=== PATIENT | male | born 1970 | race Caucasian/White ===

== ENCOUNTER 2019-12-30 09:19 | Emergency (ER) | payer OTHER ==
[~2019-12-30] VITALS: Ht 172.7 cm; Wt 104.3 kg
[2019-12-30] MEDS ORDERED: NEXIUM20 M1 PO (09:27)
[2019-12-30] MEDS ORDERED: VOLTAREN100 GM TOP (09:27)
[2019-12-30] MEDS ORDERED: DIOVAN HCT 3201 EAC1 PO (09:27)
[2019-12-30] MEDS ORDERED: LEVAQUIN750 MG PO (11:28)
== END 2019-12-30 12:49 | disposition home or self-care (01) ==
LOC: ER 09:19
DX: S01.81XA Laceration without foreign body of other part of head, initial encounter (principal); W18.09XA Striking against other object with subsequent fall, initial encounter; Y93.89 Activity, other specified; Y92.018 Other place in single-family (private) house as the place of occurrence of the external cause; Y99.8 Other external cause status

== ENCOUNTER 2020-04-17 13:49 | Inpatient (IN) | payer OTHER ==
[~2020-04-17] VITALS: Ht 172.7 cm; Wt 95.3 kg
[~2020-04-17 13:49] MED LIST: DIOVAN HCT 3201 EAC1 PO; LEVAQUIN750 MG PO; NEXIUM20 M1 PO; VOLTAREN100 GM TOP
--- NOTE | 2020-04-17 14:37 | NUR ---
PACIENTE ALERTA Y ORIENTADO ACOMPANADO POR FAMILIAR. REFIERE TENER DOLOR EN RODILLA RELACIONADO A CAIDA HACE LIDIA HORA. SE LE REALIZA DEXTRO Y EKG Y SE LE PRESENTA A LA DOCTORA. PACIENTE COMENZO A SENTIRSE MAREADO, SUDAR, Y TEMBLAR. SE UBICA PACIENTE EN AREA DE CUIDADO CRITICO, SE COLOCA EN CAMA CON BARANDAS ELEVADAS, MONITOR CARDIACO Y OXIMETRIA DE PULSO.
--- NOTE | 2020-04-17 15:17 | NUR ---
PATIENT IS RECEIVED ALERT AND ORIENTED X3 AND IS IN BED WITH RAILINGS UP. PATIENT IS TALKING, IS BREATHING WELL AND DENIES BEING IN PAIN. PATIENT HAS IVF 0.9% NACL AT FULL DRIP WITH PATENT IV LINES AND AREA OF VENOPUNCTION CLEAR OF BLEEDING AND SWELLING. PATIENT SAYS HE DOESN'T FEEL DIZZY AT ALL AND IS FEELING BETTER BY THE MOMENT. PATIENT WILL STAY IN OBSERVATION FOR ANY CHANGES IN HIS CONDITION.
--- NOTE | 2020-04-17 22:01 | NUR ---
PATIENT IS POSTED TO TELEMETRY AND MS. PACHECO RECIEVES POST.
[2020-04-20] MEDS ORDERED: GABAPENTIN600 MG PO (08:28)
[2020-04-20] MEDS ORDERED: DICLOFENAC SODI75 MG PO (08:28)
[2020-04-22] MEDS ORDERED: COZAAR25 MG PO (09:54)
== END 2020-04-22 11:08 | disposition home or self-care (01) | DRG 315 ==
LOC: ER 13:49 → MEDI 20:55 → SEC-K 04-18 17:08 → MEDI 04-19 23:52
PROVIDERS: ADMIT Internal Medicine; ATTEND Internal Medicine
PROC: BW28ZZZ Computerized Tomography (CT Scan) of Head (ICD-10-PCS; 2020-04-17)
PROC: BW38ZZZ Magnetic Resonance Imaging (MRI) of Head (ICD-10-PCS; 2020-04-17)
PROC: B24BZZZ Ultrasonography of Heart with Aorta (ICD-10-PCS; 2020-04-18)
PROC: B348ZZZ Ultrasonography of Bilateral Internal Carotid Arteries (ICD-10-PCS; 2020-04-18)
PROC: 4A12X4Z Monitoring of Cardiac Electrical Activity, External Approach (ICD-10-PCS; principal; 2020-04-20)
DX: I95.89 Other hypotension (principal); E87.1 Hypo-osmolality and hyponatremia; R55 Syncope and collapse; I10 Essential (primary) hypertension; E11.9 Type 2 diabetes mellitus without complications; E87.6 Hypokalemia; E86.0 Dehydration; E83.42 Hypomagnesemia
CPT/HCPCS: 70544

== ENCOUNTER 2020-06-17 12:38 | Inpatient (IN) | payer OTHER ==
[~2020-06-17] VITALS: Ht 172.7 cm; Wt 96.2 kg
[~2020-06-17 12:38] MED LIST changes: +COZAAR25 MG PO; +DICLOFENAC SODI75 MG PO; +GABAPENTIN600 MG PO
--- NOTE | 2020-06-17 13:03 | NUR ---
PTE. REFIERE DEBILIDAD, VOMITOS, MAREOS HACE TRS FOLEY SE BUD S/V YSE UBIAC EN AREA DE OBSERVACION
--- NOTE | 2020-06-17 13:34 | NUR ---
PACIENTE ALERTA Y ORIENTADO EN LEXIE JOLANTA ESFERAS MR. MENDOZAAN ORIENTA A PACIENTE SOBRE PROCEDIMEINTO Y TX, REFIERE ENTENDER. EXTRAE MUESTRAS DE LABORATORIO CONE MEDIDAS ASEPTICAS Y ADMINISTRA MEDICAMENTOS [facility]ICA.
--- NOTE | 2020-06-17 15:24 | NUR ---
PTE MASCULINO ALERTA Y ORIENTADO EN L[place] JOLANTA ESFERAS EN VADIM BAJA CON BARANDAS ELEVADAS Y FRENOS COLOCADOS POR SEGURIDAD. SE OSBERVA CON BUEN PATRON RESPIRATORIO Y NO REFIERE DOLOR. VENOPUNCION PATENTE DERRICK DE EDEMA Y ERITEMA RECIBIENDO TERAPIA DE IVFS 0.9NSS BAJANDO 175ML/HR. PENDIENTE RESULTADOS DE LABORATORIO Y U/A PTE CON ENVASE Y DEBIDAMENTE ORIENTADO.
--- NOTE | 2020-06-18 00:39 | NUR ---
SE RECIBE MASCULINO ALERTA Y ORIENTADO POR JOLANTA ESFERAS, EN VADIM CON BARANDAS SEGURAS Y ELEVADAS. AREA DE VENOPUNCION DERRICK DE EDEMA O ENROJECIMIENTO. SE MANTIENE EN ESPERA DE MEDICOS CONSULTADOS.
--- NOTE | 2020-06-18 07:08 | NUR ---
SE RCIBE PACIENTE UBICADO EN AREA DE OBSERVACION, ALERTA, CONCIENTE Y ORIENTADO X3. EN MISMO ESTA UBICADO EN VADIM CON BARANDAS ELEVADAS Y ESTA PENDIENTE DE SER CONSULTADO POR MEDICINA INTERNA. SE MANTIEN EN OBSERVACION POR CABIOS EN CONDICION Y CONTINUIDAD DE INNA.
--- NOTE | 2020-06-18 15:20 | NUR ---
SE RECIBE PTE ALERTA Y CONCIENTE POR 3 EN CAMA CON BARANDAS ELEVADA Y TIMBRE ACCESIBLE SE OBSERVA VENOPUNCION PATENTE Y DERRICK DE EDEMA, PTE EN ESPERA DEL DR GIULIA RM PTE SE MANTIENE EN OBSERVACION Y BAJO TRATAMIENTO,
[2020-06-26] MEDS ORDERED: KLOR-CON M2020 MEQ PO (12:52)
== END 2020-06-26 13:09 | disposition home or self-care (01) | DRG 439 ==
LOC: ER 12:38 → MEDJ 06-18 16:26
PROVIDERS: ADMIT Internal Medicine; ATTEND Internal Medicine
PROC: BF37YZZ Magnetic Resonance Imaging (MRI) of Pancreas using Other Contrast (ICD-10-PCS; principal; 2020-06-18)
DX: K85.10 Biliary acute pancreatitis without necrosis or infection (principal); E87.1 Hypo-osmolality and hyponatremia; Z20.828 Contact with and (suspected) exposure to other viral communicable diseases; E86.0 Dehydration; I10 Essential (primary) hypertension; Z53.09 Procedure and treatment not carried out because of other contraindication

== ENCOUNTER 2020-08-10 13:05 | Emergency (ER) | payer OTHER ==
[~2020-08-10] VITALS: Ht 172.7 cm; Wt 90.7 kg
[~2020-08-10 13:05] MED LIST changes: +KLOR-CON M2020 MEQ PO
== END 2020-08-11 14:23 | disposition home or self-care (01) ==
LOC: ER 13:05
DX: K80.80 Other cholelithiasis without obstruction (principal); K76.0 Fatty (change of) liver, not elsewhere classified; R10.11 Right upper quadrant pain; R10.84 Generalized abdominal pain; R11.2 Nausea with vomiting, unspecified; Z03.818 Encounter for observation for suspected exposure to other biological agents ruled out

== ENCOUNTER 2020-09-04 08:14 | Inpatient (IN) | payer OTHER ==
[~2020-09-04] VITALS: Ht 172.7 cm; Wt 88.0 kg
[2020-09-10] MEDS ORDERED: FOLIC ACID1 MG PO (17:11)
[2020-09-10] MEDS ORDERED: MULTIPLE VITAM1 EAC2 PO (17:11)
[2020-09-10] MEDS ORDERED: THIAMINE HCL100 MG PO (17:11)
== END 2020-09-10 18:23 | disposition home or self-care (01) | DRG 446 ==
LOC: ER 08:14 → SEC-K 17:36 → SURG 17:36 → MEDJ 09-08 15:41
PROVIDERS: ADMIT Internal Medicine; ATTEND Internal Medicine
PROC: BF37ZZZ Magnetic Resonance Imaging (MRI) of Pancreas (ICD-10-PCS; 2020-09-04)
PROC: 02HV33Z Insertion of Infusion Device into Superior Vena Cava, Percutaneous Approach (ICD-10-PCS; principal; 2020-09-05)
DX: K83.1 Obstruction of bile duct (principal); K70.10 Alcoholic hepatitis without ascites; I10 Essential (primary) hypertension; E87.6 Hypokalemia; Z72.89 Other problems related to lifestyle; Z20.822 Contact with and (suspected) exposure to COVID-19

== ENCOUNTER 2020-10-01 09:02 | Inpatient (IN) | payer OTHER ==
[~2020-10-01] VITALS: Ht 172.7 cm; Wt 87.5 kg
[~2020-10-01 09:02] MED LIST changes: +FOLIC ACID1 MG PO; +MULTIPLE VITAM1 EAC2 PO; +THIAMINE HCL100 MG PO
[2020-10-01] MEDS ORDERED: LEVOFLOXACIN5 ML PO (09:31)
[2020-10-01] MEDS ORDERED: HYDROXYZIN10 MG/5 ML PO (09:32)
[2020-10-13] MEDS ORDERED: MICRO-K 1010 MEQ PO (13:20)
[2020-10-13] MEDS ORDERED: SPIRONOLACTONE50 MG PO (13:20)
[2020-10-13] MEDS ORDERED: INTESTINEX680 M1 PO (13:20)
[2020-10-13] MEDS ORDERED: B-1100 MG PO (13:20)
[2020-10-13] MEDS ORDERED: ATARAX25 MG PO (13:20)
[2020-10-13] MEDS ORDERED: FOLIC ACID0.8 M1 PO (13:20)
[2020-10-13] MEDS ORDERED: MULTI VITAMIN1 EACH PO (13:20)
[2020-10-13] MEDS ORDERED: PRE PROTEIN1 EACH PO (13:20)
== END 2020-10-13 13:59 | disposition home or self-care (01) | DRG 433 ==
LOC: ER 09:02 → SEC-K 14:37 → MEDI 10-02 16:56
PROVIDERS: ADMIT Internal Medicine; ATTEND Internal Medicine
PROC: 02HV33Z Insertion of Infusion Device into Superior Vena Cava, Percutaneous Approach (ICD-10-PCS; principal; 2020-10-01)
PROC: 0W9G3ZX Drainage of Peritoneal Cavity, Percutaneous Approach, Diagnostic (ICD-10-PCS; 2020-10-07)
DX: K70.11 Alcoholic hepatitis with ascites (principal); K83.09 Other cholangitis; F10.288 Alcohol dependence with other alcohol-induced disorder; I10 Essential (primary) hypertension; Z20.822 Contact with and (suspected) exposure to COVID-19

== ENCOUNTER 2020-11-20 13:27 | Inpatient (IN) | payer OTHER ==
[~2020-11-20] VITALS: Ht 172.7 cm; Wt 70.3 kg
[~2020-11-20 13:27] MED LIST changes: +ATARAX25 MG PO; +B-1100 MG PO; +FOLIC ACID0.8 M1 PO; +HYDROXYZIN10 MG/5 ML PO; +INTESTINEX680 M1 PO; +LEVOFLOXACIN5 ML PO; +MICRO-K 1010 MEQ PO; +MULTI VITAMIN1 EACH PO; +PRE PROTEIN1 EACH PO; +SPIRONOLACTONE50 MG PO
--- NOTE | 2020-11-20 13:43 | NUR ---
PACIENTE ALERTA Y ORIENTADO. REFIERE MALESTAR GENERAL, FALTA DE AIRE, DEBILIDAD EN [place]. SE OBSERVA PIEL Y OJOS 'JAUNDICE' SINTOMAS PRESENTES AL MOMENTO DEL TRIAGE. SE KHADRA S/V. SE UBICA EN CADENCE DE OBSERVACION PARA EVALUACION MEDICA.
[2020-12-01] MEDS ORDERED: AMOX1TAB5 PO (15:01)
[2020-12-01] MEDS ORDERED: INTESTINEX680 M1 PO (15:01)
== END 2020-12-01 15:48 | disposition home or self-care (01) | DRG 372 ==
LOC: ER 13:27 → MEDJ 21:46
PROVIDERS: ADMIT Internal Medicine; ATTEND Internal Medicine
PROC: 4A033R1 Measurement of Arterial Saturation, Peripheral, Percutaneous Approach (ICD-10-PCS; 2020-11-20)
PROC: 0DJ08ZZ Inspection of Upper Intestinal Tract, Via Natural or Artificial Opening Endoscopic (ICD-10-PCS; principal; 2020-11-24)
DX: K65.2 Spontaneous bacterial peritonitis (principal); I85.00 Esophageal varices without bleeding; G93.49 Other encephalopathy; E87.1 Hypo-osmolality and hyponatremia; N39.0 Urinary tract infection, site not specified; K70.40 Alcoholic hepatic failure without coma; K70.9 Alcoholic liver disease, unspecified; E87.6 Hypokalemia; E80.6 Other disorders of bilirubin metabolism; B96.89 Other specified bacterial agents as the cause of diseases classified elsewhere; K70.11 Alcoholic hepatitis with ascites; I10 Essential (primary) hypertension; N20.0 Calculus of kidney; E86.0 Dehydration; G62.89 Other specified polyneuropathies

== ENCOUNTER 2025-07-21 10:00 | Inpatient (IN) | payer OTHER ==
[~2025-07-21] VITALS: Ht 172.7 cm; Wt 99.8 kg
[~2025-07-21 10:00] MED LIST changes: +AMOX1TAB5 PO
[2025-07-21] MEDS ORDERED: LASIX20 MG (11:12)
--- NOTE | 2025-07-21 11:20 | NUR ---
PACIENTE MASCULINO ALERTA Y ORIENTADO X 3. REFIERE MALESTAR GENERAL. SE MIDEN SIGNOS VITALES Y Y DXT. SE UBICA.
--- NOTE | 2025-07-21 12:44 | NUR ---
SE REALIZA LAB [facility] ORDEN MEDICA BAJO MEDIDAS ASEPTICAS. SE ORIENTA PTE QUIEN REFIERE ENTENDER Y ACEPTAR.
[2025-07-21 12:55] LABS: BASO % 0.4 % (0.1-1.2); EOS # 0.05 (0.04-0.54); EOS % 0.7 % (0.7-7.0); LYMPH # 1.14 (1.18-3.74); LYMPH % 17.0 % (19.3-53.1); MEAN PLATELET VOLUME 10.80 fl (9.4-12.4); MONO # 0.53 (0.24-0.82); MONO % 7.9 % (4.7-12.5); NEUT # 4.92 (1.56-6.13); NEUT % 73.7 % (34.0-71.1); RED CELL DISTRIBUTION WIDTH 13.2 % (11.6-14.4)
[2025-07-21 13:14] LABS: INR 1.35
[2025-07-21 13:35] LABS: ALT/SGPT 116.0 U/L (12-78); AST/SGOT 360.0 U/L (15-37); BILIRUBIN TOTAL 9.6 mg/dL (0.3-1.2); BILIRUBIN,CONJUGATED 6.36 mg/dL (0.0-0.2); BUN CREA RATIO 5.0 (7.0-25.0); CREATININE SERUM 0.77 mg/dL (0.70-1.30); GFR 105.68; GLOBULINA 4.9 G/DL (2.4-3.5); GLUCOSE FASTING 128.0 mg/dL (65-100); OSMOLALITY SERUM 285.0 MOSM/KG (275-295)
[2025-07-21] MEDS ORDERED: POTASSIUM CHLORIDE IN WATER 40 MEQ/100 ML PIGGYBAG IV ONE ×2 (15:45→16:10)
[2025-07-21 16:58] LABS: URINE APPEARANCE Clear; URINE BILIRRUBIN Large (NEGATIVE); URINE BLOOD Negative; URINE COLOR Dark Yellow; URINE GLUCOSE Negative (NEGATIVE); URINE KETONE 15 (NEGATIVE); URINE LEUKOCYTE Small; URINE NITRATE Negative; URINE PROTEIN 30 (NEGATIVE); URINE UROBILINOGEN 1.0 E.U./dl
[2025-07-21] MEDS ORDERED: 0.9 % SODIUM CHLORIDE 1,000 ML IV SCH (17:00)
[2025-07-21 17:02] LABS: URINE BACTERIA 36.5 uL (0.0-1933); URINE EPITHELIAL CELLS 20.6 uL (0.0-38.8); URINE RBC 8.2 uL (0.0-20.8); URINE WBC 30.8 uL (0.0-23.2)
[2025-07-21] MEDS ORDERED: LACTULOSE 20 G/30 ML BLIST.PACK PO SCH (17:02)
[2025-07-21] MEDS ORDERED: FAMOTIDINE/PF 20 MG in 0.9 % SODIUM CHLORIDE 8 ML IV PUSH SCH (17:02)
[2025-07-21] MEDS ORDERED: CHOLESTYRAMINE/ASPARTAME LIGHT 4 G/PKT PACKET PO SCH (17:03)
[2025-07-21] MEDS ORDERED: POTASSIUM CHLORIDE IN WATER 100 ML IV SCH (17:04)
[2025-07-21] MEDS ORDERED: ONDANSETRON HCL 4 MG in 0.9 % SODIUM CHLORIDE 50 ML IV PRN (17:15)
[2025-07-21 17:25] LABS: URINE CAST 0.70 uL (0.0-1.40)
[2025-07-21] MEDS ORDERED: FAMOTIDINE/PF 20 MG/2 ML VIAL ONE (17:47)
[2025-07-21] MEDS ORDERED: LACTULOSE 20 G/30 ML BLIST.PACK ONE (17:47)
[2025-07-22] MEDS ORDERED: ONDANSETRON HCL 2 MG/ML VIAL ONE (01:39)
[2025-07-22 03:05] VITALS: BP 119/78; O2SAT 98
[2025-07-22 08:39] VITALS: BP 137/88; O2SAT 97
[2025-07-22] MEDS ORDERED: SPIRONOLACTONE 25 MG TABLET PO SCH (09:00)
[2025-07-22 09:55] LABS: TSH 2.44 uIU/mL (0.358-3.74)
[2025-07-22] MEDS ORDERED: MAGNESIUM SULFATE IN WATER 4 GM/100 ML PIGGYBACK IV NR (13:00)
[2025-07-22 15:58] VITALS: BP 136/84; O2SAT 99
[2025-07-22] MEDS ORDERED: POTASSIUM PHOS,M-BASIC-D-BASIC 18 MM in 0.9 % SODIUM CHLORIDE 500 ML IV ONE (16:00)
[2025-07-22] MEDS ORDERED: Cyanocobalamin/Mecobalamin 1 TAB.SL SL SCH (17:00)
[2025-07-22] MEDS ORDERED: MULTIVIT INFUSN,ADULT 4,VIT K 10 ML VIAL IV SCH (17:00)
[2025-07-22] MEDS ORDERED: THIAMINE HCL 100 MG TABLET PO SCH (17:00)
[2025-07-22] MEDS ORDERED: CHOLECALCIFEROL (VITAMIN D3) 5,000 UNITS TABLET PO SCH (17:00)
[2025-07-22] MEDS ORDERED: FOLIC ACID 1 MG TABLET PO SCH (17:00)
[2025-07-23] VITALS: BP 139/87; O2SAT 98
[2025-07-23] MEDS ORDERED: POTASSIUM CHLORIDE IN WATER 100 ML IV SCH
[2025-07-23 07:22] LABS: BUN CREA RATIO 8.0 (7.0-25.0); CREATININE SERUM 0.73 mg/dL (0.70-1.30); GFR 112.39; GLUCOSE FASTING 88.0 mg/dL (65-100); OSMOLALITY SERUM 282.0 MOSM/KG (275-295)
[2025-07-23 08:00] VITALS: BP 154/95; O2SAT 97
[2025-07-23] MEDS ORDERED: AMINO ACIDS 1 EACH TABLET PO NR (10:00)
[2025-07-23 15:55] VITALS: BP 142/88; O2SAT 97
[2025-07-23] MEDS ORDERED: AMINO ACIDS 1 EACH TABLET PO SCH (17:00)
[2025-07-23 23:42] VITALS: BP 142/86; O2SAT 98
[2025-07-24 07:27] LABS: ALT/SGPT 68.0 U/L (12-78); AST/SGOT 158.0 U/L (15-37); BILIRUBIN TOTAL 9.65 mg/dL (0.3-1.2); BUN CREA RATIO 9.0 (7.0-25.0); CREATININE SERUM 0.8 mg/dL (0.70-1.30); GFR 101.12; GLOBULINA 3.8 G/DL (2.4-3.5); GLUCOSE FASTING 89.0 mg/dL (65-100); OSMOLALITY SERUM 282.0 MOSM/KG (275-295)
[2025-07-24 08:00] VITALS: BP 131/83; O2SAT 97
[2025-07-24] MEDS ORDERED: POTASSIUM CHLORIDE IN WATER 100 ML IV SCH (09:00)
[2025-07-24] MEDS ORDERED: MAGNESIUM SULFATE IN WATER 4 GM/100 ML PIGGYBACK IV NR (13:30)
[2025-07-24 16:00] VITALS: BP 137/84; O2SAT 99
[2025-07-24] MEDS ORDERED: CALCIUM CARBONATE/VITAMIN D3 1 TAB TABLET PO SCH (17:00)
[2025-07-25] VITALS: BP 126/76; O2SAT 99
[2025-07-25 08:00] VITALS: BP 143/82; O2SAT 98
[2025-07-25] MEDS ORDERED: PRE PROTEIN1 EACH PO (14:30)
[2025-07-25] MEDS ORDERED: LACTULOSE10 GM/152 PO (14:30)
[2025-07-25] MEDS ORDERED: SPIRONOLACTONE25 MG PO (14:30)
[2025-07-25] MEDS ORDERED: CHOLESTYRAMINE L4 GM PO (14:30)
[2025-07-25] MEDS ORDERED: ATARAX10 MG PO (14:30)
== END 2025-07-25 15:55 | disposition home or self-care (01) | DRG 433 ==
LOC: ER 10:01 → SURG 17:03 → MEDI 17:03 → SEC-K 19:05 → SURG 07-22 02:52
PROVIDERS: General Practice; ADMIT Internal Medicine; ATTEND Internal Medicine
PROC: BW40ZZZ Ultrasonography of Abdomen (ICD-10-PCS; principal; 2025-07-22)
PROC: 02HV33Z Insertion of Infusion Device into Superior Vena Cava, Percutaneous Approach (ICD-10-PCS; 2025-07-22)
DX: K70.10 Alcoholic hepatitis without ascites (principal); E87.1 Hypo-osmolality and hyponatremia; E87.6 Hypokalemia; K70.9 Alcoholic liver disease, unspecified; K70.30 Alcoholic cirrhosis of liver without ascites; K21.9 Gastro-esophageal reflux disease without esophagitis; I10 Essential (primary) hypertension; E86.0 Dehydration